=== PATIENT | female | born 1950 | race Caucasian/White ===

== ENCOUNTER → 2019-11-26 | Outpatient (CLI) | payer OTHER | LOC: SJCVC 11:26 → SJCVCIMAG 11:26 | DX: Z01.810 Encounter for preprocedural cardiovascular examination (principal); I77.810 Thoracic aortic ectasia; R94.31 Abnormal electrocardiogram [ECG] [EKG]; R00.1 Bradycardia, unspecified; E78.5 Hyperlipidemia, unspecified; I10 Essential (primary) hypertension; Z87.891 Personal history of nicotine dependence; Z79.899 Other long term (current) drug therapy ==